=== PATIENT | male | born 1970 | race Caucasian/White ===

== ENCOUNTER 2022-06-05 18:05 | Inpatient (IN) | payer MEDICAID, SELFPAY ==
[2022-06-05] VITALS (19 sets, daily range): BP systolic 100–123; BP diastolic 76–88; PULSE 54–88; RESP 12–23; TEMP 36.6; O2SAT 100; BMI 27.3; BMI 26.0
--- NOTE | 2022-06-05 18:09 | NURSING ---
STEMI CALLED PRIOR TO ARRIVAL [id number]
--- NOTE | 2022-06-05 18:15 | EDS_ITS ---
HPI History of Present Illness Chief Complaint: Chest Pain Informant: patient Onset/Context/Timing Onset: Today Activity at onset: sudden Timing: Waxes and wanes Quality: Positive for Pressure Location: Substernal and Left Parasternal Maximum Severity: 9/10 Worsened By: Exertion Relieved By: Rest Associated Symptoms: Positive for Nausea, Diaphoresis and Dyspnea; Negative for Vomiting, Cough, Fever, Lightheadedness, Acid Reflux or Palpitations Narrative Narrative: Patient presents with chest pain that has been waxing and waning for the past 5 hours. Patient states it would get worse whenever he would do any exertion such as lifting. Patient states that his pain will get better with rest. Patient describes it as heaviness. Patient states it would go into his neck and down his left arm. Patient states it also went into his back. Patient admits to some shortness of breath. Patient also admits to some mild diaphoresis. Patient admits to nausea but denies any vomiting. Patient denies any palpitations or lightheadedness. CVD Risk Factors: Positive for Family History 1' </=55 and Smoking; Negative for Hypertension, Diabetes or Hypercholesterolemia PE Risk Factors: Negative for Recent Travel/Surgery, Recent Immobilization, Prior DVT or PE or Cancer PFSH PFSH Medical History Chronic back pain Former tobacco use Medical History no medical history no medical history Home Medications NK 06/05/22 [History Last Taken Unknown] Allergy/AdvReac Type Severity Reaction Status Date / Time No Known Allergies Allergy Verified 06/05/22 18:05 Family History (Updated 06/05/22 @ 18:[address] Ivonne Roman MD) Mother Heart disease Brother Heart disease Hx cardiac arrhythmia, possibly bradycardia, status post pacemaker placement. Surgical History History of dental surgery Surgical History no surgical history Social History (Updated 06/05/22 @ 18:[address] Ivonne Roman MD) household members: family Smoking Status: Former smoker how long ago did patient quit smoking: Quit 04/2021, smoked since 18, quit 7 yrs in between, 1/2-1 ppd. alcohol intake: never substance use type: does not use ROS ROS ED Constitutional Constitutional ED: Denies chills or fever(s) Eyes Eyes: Denies blurry vision or change in vision ENT ENT ED: Denies rhinorrhea or sore throat Cardiovascular Cardiovascular: Reports chest pain; Denies palpitations Respiratory/Chest Respiratory/Chest: Reports dyspnea; Denies cough Gastrointestinal Gastrointestinal: Reports nausea; Denies abdominal pain or vomiting Genitourinary Genitourinary ED: Denies dysuria or hematuria Musculoskeletal Musculoskeletal: Denies back pain or neck pain Integumentary Denies abscess or rash Neurologic Neurologic: Denies headache(s) or weakness Allergic/Immunologic Allergic/Immunologic ED: Denies mouth swelling or urticaria EXAM Physical Exam Const Vital Signs: 06/05/22 18:07 06/05/22 18:07 06/05/22 18:15 Temperature 97.9 F Temperature Source Temporal Pulse Rate 77 Respiratory Rate 20 H 17 Respiratory Effort Normal Non-Labored Blood Pressure 117/85 H 106/76 Blood Pressure Mean 95 Pulse Ox 100 Oxygen Delivery Method Room Air 06/05/22 18:26 06/05/22 18:26 Temperature 97.9 F Temperature Source Temporal Pulse Rate 69 Respiratory Rate 15 Respiratory Effort Blood Pressure 106/76 Blood Pressure Mean 86 Pulse Ox 100 100 Oxygen Delivery Method Room Air Nasal Cannula Positive well nourished and well developed General Appearance ED: well developed and NAD HEENT normocephalic and atraumatic Eyes PERRL and EOMs intact bilaterally Neck supple and no JVD Chest Wall palpation of chest normal Resp normal respiratory effort and clear to auscultation bilaterally Effort and Inspection: Negative for respiratory distress Cardio regular rate, regular rhythm and no murmurs GI normal to inspection, nondistended, normoactive bowel sounds, soft to palpation, non-tender and non-distended Extremity normal to inspection General Extremety ED: Negative for edema or tenderness General Extremity: Negative for edema Neuro oriented x3, CN's II-XII intact bilaterally and no sensory deficits noted Sensorium / Orientation: awake and alert Motor Exam: strength 5/5 throughout Psych mental status grossly normal Heart Score History: Highly Suspicious ECG: Significant ST-Depression Age: >45 - <65 years Risk Factors: 1 or 2 Risk Factors Score: 6 MDM MDM MDM Narrative Medical decision making narrative: Prehospital STEMI alert was called. EKG was obtained. On my interpretation, it shows a normal sinus rhythm. There is ST elevation in leads II, III, and aVF. There are reciprocal changes noted in leads I, aVL, V1, and V2. Case was discussed with machinist brake. He wanted me to text him the prehospital EKGs. These were done. EMS administered 4000 units of heparin, 4 baby aspirin, and 180 mg of Brilinta. Patient was advised of his diagnosis of acute inferior STEMI. Patient was advised of the need for immediate cardiac catheterization. Patient was given the opportunity ask questions. No further questions. Patient was agreeable to go to the [facility]. Patient was transferred to the [facility] in stable condition. Hospitalist was also in to evaluate the patient and will admit the patient to ICU after cardiac cath. Patient understood and was agreeable with plan. All questions were answered. Lab Data Labs: Laboratory Results - last 24 hr 06/05/22 06/05/22 06/05/22 08:03 18:05 18:05 WBC 10.7 RBC 4.92 Hgb 15.0 Hct 43.9 MCV 89.2 MCH 30.5 MCHC 34.2 RDW Std Deviation 42.5 RDW Coeff of Conrad 13.1 Plt Count 301 MPV 10.0 Immature Gran % (Auto) 0.200 Neut % (Auto) 57.3 Lymph % (Auto) 35.5 [place] % (Auto) 5.5 Eos % (Auto) 0.8 Baso % (Auto) 0.7 Absolute Neuts (auto) 6.1 Absolute Lymphs (auto) 3.78 Nucleated RBC % 0 PT 13.4 INR 1.0 APTT 27.4 Sodium Potassium Chloride Carbon Dioxide Anion Gap BUN Creatinine Estim Creat Clear Calc Est GFR (MDRD) Af Amer Est GFR (MDRD) Non-Af BUN/Creatinine Ratio Glucose Calcium Magnesium 2.2 Troponin I High Sens 06/05/22 18:05 WBC RBC Hgb Hct MCV MCH MCHC RDW Std Deviation RDW Coeff of Conrad Plt Count MPV Immature Gran % (Auto) Neut % (Auto) Lymph % (Auto) [place] % (Auto) Eos % (Auto) Baso % (Auto) Absolute Neuts (auto) Absolute Lymphs (auto) Nucleated RBC % PT INR APTT Sodium 139 Potassium 3.0 L Chloride 106 Carbon Dioxide 24.0 Anion Gap 9 BUN 11 Creatinine 1.19 Estim Creat Clear Calc 76.68 Est GFR (MDRD) Af Amer 83 Est GFR (MDRD) Non-Af 69 BUN/Creatinine Ratio 9.2 L Glucose 130 H Calcium 9.8 Magnesium Troponin I High Sens 14 EKG Initial EKG: Attestation: I personally reviewed and interpreted this EKG as follows: Interpretation: Sinus Rhythm and S-T Elevation (Leads II, III, and aVF) Prior EKG tracings: not available for review Prior: No Prior Critical Care Time Critical Care Time: Yes Critical care time (excluding procedures): 30-74 minutes (30), Including time spent:, Discussing w/Patient &/or Family/Behavioral Health Counselor, Discussing w/Consultants, Arranging Admission or Transfer and Performing Direct Patient Care at Bedside Discharge Plan Dx/Rx/DC Orders Clinical Impression: Acute ST elevation myocardial infarction (STEMI), Former cigarette smoker Disposition Disposition: Acute Care Hospital [facility] Discharge Date/Time: 06/05/22 18:20
--- NOTE | 2022-06-05 18:19 | NURSING ---
ICU [facility] STEMI
[2022-06-05 18:28] LABS: Absolute Lymphocyte Count 3.78 X10^3/uL (0.83-4.51); Absolute Neutrophil Count 6.1 X10^3/uL (2.0-7.7); Basophil# 0.07 X10^3/uL; Basophil% 0.7 % (0-1); Eosinophil# 0.08 X10^3/uL; Eosinophils% 0.8 % (0-5); Hematocrit 43.9 % (40-54); Lymphocyte # 3.78 X10^3/ul (0.83-4.51); Lymphocyte % 35.5 % (19-41); Mean Corp Hgb Conc 34.2 g/dL (32-36); Mean Corpuscular Hgb 30.5 pg (27.0-32.0); Mean Corpuscular Volume 89.2 fL (80-94); Monocyte# 0.59 X10^3/uL; Monocyte% 5.5 % (0-10); NRBC Flagged by Analyzer 0 % (0-5); Neutrophil # 6.11 X10^3/uL (2.7-7.7); Neutrophil % 57.3 % (47-70); Platelet Count 301 K/mm3 (150-450); RBC Distribution Width CV 13.1 % (11.6-14.6); RBC Distribution Width SD 42.5 fl (35.1-43.9); Red Blood Count 4.92 M/mm3 (4.6-6.2); White Blood Count 10.7 K/mm3 (4.4-11.0)
--- NOTE | 2022-06-05 18:37 | HP.PCM.HOS_ITS ---
HPI - General General Date of Admission: 06/05/22 Date of Service: 06/05/22 Chief Complaint: Chest pain. HPI Narrative The patient is a 52 y/o M w/ PMhx: Chronic back pain, Former tobacco use who presents to the [facility] ED on 06/05/22 secondary to onset starting approximately 1:30 PM on day of presentation of general malaise, nausea without emesis, diaphoresis and dyspnea with associated chest pressure/tightness primarily in the midsternal region however it radiates to the left jaw as well as left upper extremity into the back as well but seems to shanon with rest and he noted specifically onset when he was moving furniture and with any activity attempts with improvement when he again took a break rating the pain at its worst 8-9 out of 10 in severity and upon ED arrival 2 out of 10 never having felt anything like this prior eventually prompting his family to call EMS. EMS on route did send the EKG which demonstrated an acute inferior STEMI with STEMI call initiated. On route patient was administered 4 baby aspirin's, 180 mg Brilinta load as well as heparin 4000 unit bolus. Work-up in the ED included T97.9, heart rate 69, BP 106/79, respiratory rate 15, 100% on room air, repeat EKG with normal sinus rhythm with ST elevations in lead II, 3, aVF with reciprocal changes in leads I, aVL, V1 and V2 again reviewed with cardiology, CBC with WC 10.7, hemoglobin 15, platelets 301 without marked shift, pending coags as well as BMP upon evaluation in addition to troponin and chest x-ray also pending upon evaluation. Patient transitioned from the ED to the cardiac catheterization lab with Dr. Barraza. [facility] Medical History Chronic back pain Former tobacco use Medical History no medical history Home Medications NK 06/05/22 [History Last Taken Unknown] Allergy/AdvReac Type Severity Reaction Status Date / Time No Known Allergies Allergy Verified 06/05/22 18:05 Family History (Updated 06/05/22 @ 18:[address] Ivonne Roman MD) Mother Heart disease Brother Heart disease Hx cardiac arrhythmia, possibly bradycardia, status post pacemaker placement. other (Father in his 40s without medical history secondary to MVA.) Surgical History History of dental surgery Surgical History no surgical history Social History (Updated 06/05/22 @ 18:[address] Ivonne Roman MD) household members: family Smoking Status: Former smoker how long ago did patient quit smoking: Quit 04/2021, smoked since 18, quit 7 yrs in between, 2-1 ppd. alcohol intake: never substance use type: does not use ROS ROS Narrative Admission Review of Systems: CONSTITUTIONAL: No weight loss, fever, chills, + weakness or fatigue. HEENT: Eyes: No visual loss, blurred vision, double vision or yellow sclerae. Ears, Nose, Throat: No hearing loss, sneezing, congestion, runny nose or sore throat. SKIN: No rash or itching, lesions, wounds. CARDIOVASCULAR: + Chest tightness/pressure, No palpitations, edema, orthopnea, syncopal events. RESPIRATORY: + shortness of breath, No cough or sputum, wheezing, hemoptysis. GASTROINTESTINAL:+ anorexia, nausea, No vomiting or diarrhea, abdominal pain, melena, BRBPR. GENITOURINARY: No dysuria, frequency, urgency or retention. NEUROLOGICAL: No headache, dizziness, syncope, paralysis, ataxia, numbness or tingling in the extremities, focal weakness, change in bowel or bladder control, seizure. MUSCULOSKELETAL: + muscle, back pain, joint pain or stiffness. HEMATOLOGIC: No anemia, bleeding or bruising. LYMPHATICS: No enlarged nodes. No history of splenectomy. PSYCHIATRIC: No history of depression or anxiety. ENDOCRINOLOGIC: + reports of sweating, cold or heat intolerance. No polyuria or polydipsia. ALLERGIES: No history of asthma, hives, eczema or rhinitis. Vital Signs Vital Signs Vital Signs: 06/05/22 18:07 06/05/22 18:07 06/05/22 18:15 Temperature 97.9 F Temperature Source Temporal Pulse Rate 77 Respiratory Rate 20 H 17 Respiratory Effort Normal Non-Labored Blood Pressure 117/85 H 106/76 Blood Pressure Mean 95 Pulse Ox 100 Oxygen Delivery Method Room Air 06/05/22 18:26 06/05/22 18:26 Temperature 97.9 F Temperature Source Temporal Pulse Rate 69 Respiratory Rate 15 Respiratory Effort Blood Pressure 106/76 Blood Pressure Mean 86 Pulse Ox 100 100 Oxygen Delivery Method Room Air Nasal Cannula Weight Weight: 190 lb 4.143 oz Body Mass Index (BMI) 27.3 Physical Exam Narrative Physical Examination: General: Awake, alert, oriented x 3 and cooperative, laying in the ED bed, anxious, notes chest pain currently improved to 2-3 out of 10 in severity. Skin: Normal color, normal turgor, no icterus, no cyanosis, several tattoos on the extremities. HEENT: AT/NC, EOMI, PERRLA, mildly dry MM, no carotid bruits or JVD noted. Lungs: Mildly diminished, greater bases, appropriate effort, no rales, ronchi or wheezing. Heart: Currently regular rate and rhythm; no gallop, rub audible. Abdomen: Soft, NTTP, ND, mildly hyperactive BS, no HSM. Extremities: No cyanosis, clubbing, or edema. Neurological: Patient awake, alert, oriented as noted, cognitive function intact; pupils equally reactive to light and accommodation, cranial nerves II- XII grossly normal, moving all 4 extremities, no focal deficits, strength mildly to moderately global decrease secondary to acute presentation. Psychiatric: Affect appears appropriately anxious given acute presentation with STEMI, no acute evidence of depressive feelings. Results Lab / Micro Data Result Diagrams: 06/05/22 18:05 06/05/22 18:05 Labs: Laboratory Results - last 24 hr 06/05/22 18:05: WBC 10.7, RBC 4.92, Hgb 15.0, Hct 43.9, MCV 89.2, MCH 30.5, MCHC 34.2, RDW Std Deviation 42.5, RDW Coeff of Conrad 13.1, Plt Count 301, MPV 10.0, Immature Gran % (Auto) 0.200, Neut % (Auto) 57.3, Lymph % (Auto) 35.5, [place]ane % (Auto) 5.5, Eos % (Auto) 0.8, Baso % (Auto) 0.7, Absolute Neuts (auto) 6.1, Absolute Lymphs (auto) 3.78, Nucleated RBC % 0 Assessment & Plan Assessment/Plan (1) Acute ST elevation myocardial infarction (STEMI): PLAN: Plan The patient is a 52 y/o M w/ PMhx: Chronic back pain, Former tobacco use who presents to the [facility] ED on 06/05/22 secondary to onset starting approximately 1:30 PM on day of presentation of general malaise, nausea without emesis, diaphoresis and dyspnea with associated chest pressure/tightness primarily in the midsternal region however it radiates to the left jaw as well as left upper extremity into the back ongoing intermittently through the day primarily with activity, improving with rest. #1. Chest Pain w/ Acute Inferior STEMI: On route patient was administered 4 baby aspirin's, 180 mg Brilinta load as well as heparin 4000 unit bolus. Work-up in the ED included EKG with normal sinus rhythm with ST elevations in lead II, 3, aVF with reciprocal changes in leads I, aVL, V1 and V2. Will admit to ICU following catheterization lab evaluation and intervetion, continue consultation with Dr. Barraza, maintain on a monitored bed, continue serial cardiac enzymes and EKGs, obtain magnesium level upon admission, initiate medical management w/ asa, brillinta, statin w/ AM FLP. Cardiology noted preference to monitor BP to assess BB/ACEI/ARB addition. #2. Chronic back pain: Patient not on any chronic regimen per his report, will obtain UDS to be cautious. #3. Former tobacco use: Encourage continued tobacco cessation. #4. DVT prophylaxis: SCDs, hold on chemoprophylaxis given recent heparin bolus, transition in a.m. to Lovenox if appropriate. Charges/Coding Visit Charges Inpatient E&M: 96129 Init Hosp L3
--- NOTE | 2022-06-05 18:39 | CM.ED ---
JUDITH Note JUDITH and JUDITH Bolden met with patient's sister, niece and nieces . Emotional support provided. JUDITH remains available if needs arise. Alivia VIDAL
[2022-06-05 18:46] LABS: Partial Thromboplast Time 27.4 Seconds (24.1-36.2); Prothrombin Time (Protime)PT. 13.4 SECONDS (11.7-14.9)
[2022-06-05 19:15] LABS: Anion Gap 9 (5-15); BUN 11 mg/dL (7-18); BUN/Creat Ratio 9.2 RATIO (10-20); Calcium,Total 9.8 mg/dL (8.5-10.1); Chloride 106 mmol/L (98-107); Creatinine, Serum 1.19 mg/dL (0.70-1.30); EST Glomerular Filtration Rate 69 mL/min (>60); Est Glom Filt Rate - Afr Amer 83 mL/min (>60); Estimated Creatinine Clearance 76.68 ml/min; Glucose 130 mg/dL (74-106); Sodium Level 139 mmol/L (136-145); Troponin-I HS 14 pg/mL (3.0-78.0)
[2022-06-05 19:16] LABS: Magnesium 2.2 mg/dL (1.6-2.6)
--- NOTE | 2022-06-05 19:42 | CL.I_ITS ---
Patient Name: LALITA ROJO Study Date: 06/05/2022 Performing: Manuel Bararza MD Ht: 70 inches 177.8 cm : 1970 Wt: 190.26 lbs 86.3 kg Age: 52 Gender: male BSA: 2.04 PROCEDURE(S) PERFORMED DC01-([id number])LHC/COR/LV IC16-([id number])AMI, SENG OR PTCA, ARTERY/GRAFT, SINGLE VESSEL CLINICAL PROFILE AND CO-MORBIDITIES Indications: ACS <= 24 hrs Heart Failure: None Stress/Imaging Stress/Image Study Performed: No CAD Presentations: STEMI. Symptom onset Date/Time: Time Not Available CONCLUSIONS 100% Prox RCA 50-60% Prox LAD; Intramyocardial bridging Mid LAD 50% Mid LCX Successful Aspiration thrombectomy/PTCA/SENG Synergy 3.0x38 mm Successful SENG distal RCA using Synergy 2.5x12 mm RECOMMENDATIONS ASA Indefinitley Plavix for at least 12 months DESCRIPTION OF PROCEDURE The patient arrived to the procedure lab. The risks and benefits of the procedure as well as a full description of our services here and lack of surgical backup were fully explained to the patient and/or their significant other prior to the catheterization. The Timeout was completed, verifying the correct patient and procedure. The patient's procedural site was prepped and draped in the usual fashion. Local anesthetic was given subcutaneously to right radial region with Lidocaine 2%. Using a modified Seldinger technique, arterial access was obtained via the right radial artery, a 6Fr sheath was inserted.. Left Coronary Artery selective angiography was performed in multiple views using a 5 Fr. 4.0 [place] catheter. Right Coronary Artery selective angiography was then performed in multiple views using a 5 Fr. 4.0 [place] catheter. Left Ventriculography was performed in CASTRO projection using a 5 Fr. Pigtail catheter. LV to AO pullback pressures were then recordedThe images were reviewed and options discussed. A decision was then made to proceed with an Intervention, IVUS or other adjunct procedure. JR4 Guide catheter was inserted and engaged into the RCA. Runthrough Guide wire was advanced to the RCA. Emerge 2.5 x 20 Balloon catheter was inserted. Balloon catheter was advanced across lesion in the right coronary, proximal. PTCA balloon inflated at 8 atms for 12 secs. PTCA balloon inflated at 8 atms for 7 secs. Synergy 2.5 x 12 Drug Eluting stent was inserted. Drug Eluting stent was advanced across the lesion in the right coronary, proximal. Synergy 3.0 x 38 Drug Eluting stent was inserted. Drug Eluting stent was advanced across the lesion in the right coronary, distal. NC Emerge 2.5 x 12 Balloon catheter was inserted. Balloon catheter was advanced across lesion in the right coronary, distal. NC Emerge 3.0 x 20 Balloon catheter was inserted. Balloon catheter was advanced across lesion in the right coronary, proximal. Angiogram performed post balloon dilatation. Angiogram performed post balloon dilatation. The arterial sheath was pulled and a TR Band was applied for hemostasis CORONARY ANGIOGRAPHY DOMINANCE: Right Dominant LEFT HEART ASSESSMENT Left Ventricular Ejection Fraction: by LV Gram 55 % LVEDP: 26 mmHg LEFT ANTERIOR DESCENDING ARTERY: LAD: Tubular 60% Proximal lesion in LAD CIRCUMFLEX ARTERY: CIRCUMFLEX: Tubular 50% Proximal lesion in Circumflex RIGHT CORONARY ARTERY: RCA: Tubular 80% Distal lesion in RCA Complex 100% Proximal lesion in RCA INTERVENTION INFORMATION LESION SITE: RCA (Proximal) Lesion Complexity: High/C, lesion length: 36 mm, thrombus present: Yes, culprit lesion: Yes Pre Stenosis: 100 % Pre intervention LUCA flow: 0 PROCEDURE: Drug Eluting Stent with pre and post dilatation Post Stenosis: 0 % Post intervention LUCA flow: 3 Lesion Devices: Terumo .014 Runthrough Extra Floppy 180cm straight Ayad Sci EMERGE MR 2.50x20 BALLOON Penumbra Penumbra engine canister Penumbra Indigo Penumbra CAT Rx 140cm large lumen Ayad Sci Synergy MR SENG 2.50x32 LESION SITE: RCA (Distal) Lesion Complexity: Non-High/Non-C, culprit lesion: No Pre Stenosis: 80 % Pre intervention LUCA flow: 3 PROCEDURE: Drug Eluting Stent Post Stenosis: 0 % Post intervention LUCA flow: 3 Lesion Devices: Terumo .014 Runthrough Extra Floppy 180cm straight Ayad Sci Synergy MR SENG 3.00x38 Ayad Sci NC EMERGE MR 2.50x12 BALLOON Ayad Sci NC EMERGE MR 3.00x20 BALLOON COMPLICATIONS No Complications PROCEDURE MEDICATIONS Versed 2 mg IV Fentanyl 50 mcg IV Oxygen: 2 L/min via nasal cannula Atropine 1mg/10ml 0.5 amp @ 06/05/2022 18:45:06 Heparin 6000 unit(s) IV 06/05/2022 18:41:11 Nitro 50 mcg IC 06/05/2022 18:47:21 Verapamil 2.5mg, Ntg 200mcgs, given IA 06/05/2022 18:33:42 IV Bolus: .9 NaCl 900 ml total 06/05/2022 19:16:05 IV Fluids: .9 NaCl IV started @ open ml/hr 06/05/2022 18:48:16 IV Fluids: .9 NaCl decreased to 150 ml/hr 06/05/2022 19:16:51 SUMMARY OF HEMODYNAMIC DATA Time AIR REST ECG 18:27:43 AO 108/82 (92) SA 19:10:22 LV 138/9, 29 19:12:30 LV 138/6, 26 19:12:36 LV 140/10, 30 19:14:14 LV 136/9, 29 19:14:20 LVp 138/9, 26 19:14:27 AOp 118/85 (97) 19:14:32 Signed By Manuel Barraza MD On 06/05/2022 19:41:13 Manuel Barraza MD
--- NOTE | 2022-06-05 19:56 | PCM.CONS.C ---
Assessment & Plan Assessment/Plan (1) Acute ST elevation myocardial infarction (STEMI): QUALIFIERS: Involved coronary artery: right coronary artery Qualified Code(s): I21.11 - ST elevation (STEMI) myocardial infarction involving right coronary artery PLAN: Emergent coronary angiography with possible revascularization was recommended. After obtaining informed consent, procedure was undertaken. It revealed total occlusion of the proximal right coronary artery. Successful aspiration atherectomy followed by balloon angioplasty and drug-eluting stent was performed with excellent results. LUCA-3 flow was restored. Patient's ST segments resolved. His chest pain also resolved. Continue aspirin indefinitely. Brilinta treatment for at least 12 months. Start low-dose beta-blockers as tolerated. Start statins. HPI Consult Data Date of Consult: 06/05/22 HPI Narrative Reason for Consultation: Acute inferior myocardial infarction HPI Narrative: Patient developed chest pain early this afternoon. EMS was called this evening. An EKG was done in the field. It showed acute inferior posterior myocardial infarction. Subsequently a STEMI alert was called. Patient denies any previous history of heart disease. Denies any history of hypertension or dyslipidemia. No previous history of angina. PFSH Medical History Chronic back pain Former tobacco use Medical History no medical history Home Medications NK 06/05/22 [History Last Taken Unknown] Allergy/AdvReac Type Severity Reaction Status Date / Time No Known Allergies Allergy Verified 06/05/22 18:05 Family History (Updated 06/05/22 @ 18:[address] Ivonne Roman MD) Mother Heart disease Brother Heart disease Hx cardiac arrhythmia, possibly bradycardia, status post pacemaker placement. Family History other Surgical History History of dental surgery Surgical History no surgical history Social History (Updated 06/05/22 @ 18:[address] Ivonne Roman MD) household members: family Smoking Status: Former smoker how long ago did patient quit smoking: Quit 04/2021, smoked since 18, quit 7 yrs in between, 1/2-1 ppd. alcohol intake: never substance use type: does not use Physical Exam Narrative Patient appears mildly anxious. Lying flat. Heart rate regular rate and rhythm. Respirations unlabored. Abdomen soft. Nontender. Alert oriented x3. No ankle edema. Risk Stratification Risk Stratification Applicable: No Objective Data Vital Signs: Vital Signs Temp Pulse Resp BP Pulse Ox O2 Del Method 97.9 F 69 15 106/76 100 Nasal Cannula 06/05/22 18:26 06/05/22 18:26 06/05/22 18:26 06/05/22 18:26 06/05/22 18:26 06/05/22 18:26 Oxygen Delivery Method Nasal Cannula Weight: 190 lb 4.143 oz Body Mass Index (BMI) 27.3 Lab / Micro Data Attestation: I reviewed the patient's lab results. Result Diagrams: 06/05/22 18:05 06/05/22 18:05 Labs: Laboratory Results - last 24 hr 06/05/22 08:03: Magnesium 2.2 06/05/22 18:05: WBC 10.7, RBC 4.92, Hgb 15.0, Hct 43.9, MCV 89.2, MCH 30.5, MCHC 34.2, RDW Std Deviation 42.5, RDW Coeff of Conrad 13.1, Plt Count 301, MPV 10.0, Immature Gran % (Auto) 0.200, Neut % (Auto) 57.3, Lymph % (Auto) 35.5, [place] % (Auto) 5.5, Eos % (Auto) 0.8, Baso % (Auto) 0.7, Absolute Neuts (auto) 6.1, Absolute Lymphs (auto) 3.78, Nucleated RBC % 0 06/05/22 18:05: PT 13.4, INR 1.0, APTT 27.4 06/05/22 18:05: Sodium 139, Potassium 3.0 L, Chloride 106, Carbon Dioxide 24.0, Anion Gap 9, BUN 11, Creatinine 1.19, Estim Creat Clear Calc 76.68, Est GFR (MDRD) Af Amer 83, Est GFR (MDRD) Non-Af 69, BUN/Creatinine Ratio 9.2 L, Glucose 130 H, Calcium 9.8, Troponin I High Sens 14 Cardiology Labs/Tests 06/05/22 08:03: Magnesium 2.2 06/05/22 18:05: WBC 10.7, RBC 4.92, Hgb 15.0, Hct 43.9, MCV 89.2, MCH 30.5, MCHC 34.2, Plt Count 301, MPV 10.0, Immature Gran % (Auto) 0.200, Neut % (Auto) 57.3, Lymph % (Auto) 35.5, [place] % (Auto) 5.5, Eos % (Auto) 0.8, Baso % (Auto) 0.7, Absolute Neuts (auto) 6.1, Nucleated RBC % 0 06/05/22 18:05: PT 13.4, INR 1.0, APTT 27.4 06/05/22 18:05: Sodium 139, Potassium 3.0 L, Chloride 106, Carbon Dioxide 24.0, Anion Gap 9, BUN 11, Creatinine 1.19, Est GFR (MDRD) Af Amer 83, Est GFR (MDRD) Non-Af 69, BUN/Creatinine Ratio 9.2 L, Glucose 130 H, Calcium 9.8 Rhythm: EKG: ECHO: Stress Test: Cardiac Cath: PCI: CT Surgery: Holter monitor: EPS: PPM: CXR: Chest CT Scan:
--- NOTE | 2022-06-05 20:13 | ECHOD_ITS ---
Reason For Study: STEMI Procedure This was a 2D Doppler, Color Flow transthoracic echocardiogram. Exam performed portable in ICU/CCU. Left Ventricle Normal LV size. Mild concentric left ventricular hypertrophy. The left ventricular ejection fraction is 55 %. Normal diastololic function. Basal to mid inferior and posterior hypokinesis. Right Ventricle Mildly dilated right ventricle. Moderate global right ventricular systolic dysfunction. Atria The left and right atria are normal. Mitral Valve Trivial mitral valve insufficiency. Tricuspid Valve Trivial tricuspid valve insufficiency. Normal pulmonary artery pressure. Aortic Valve Normal aortic valve. Pulmonic Valve The pulmonic valve is not well visualized. Great Vessels Normal sized aortic root. Pericardium/Pleural No pericardial effusion. MMode/2D Measurements & Calculations LVIDd: 5.2 cm IVSd: 1.2 cm Ao root diam: 3.4 cm LVIDs: 3.8 cm LVPWd: 0.74 cm LA dimension: 3.1 cm RVDd: 3.6 cm FS: 26.8 % LAV(MOD-bp): 39.2 ml LA A4 area: 15.7 cm2 RA A4 area: 15.7 cm2 LAV(MOD-bp) Indexed: 19.6 ml/m2 LAV(MOD-sp2): 34.3 ml LAV(MOD-sp4): 36.4 ml Time Measurements MV dec time: 0.17 sec Doppler Measurements & Calculations MV E max gamal: 87.9 cm/sec Lat Peak E' Gamal: 12.7 cm/sec Med Peak E' Gamal: 11.4 cm/sec MV A max gamal: 68.2 cm/sec E/E' lat: 6.9 E/E' med: 7.7 MV E/A: 1.3 MV V2 max: 89.8 cm/sec MV P1/2t max gamal: 90.8 cm/sec Ao V2 max: 127.7 cm/sec MV max P.2 mmHg MV P1/2t: 57.1 msec Ao max P.5 mmHg MV V2 mean: 40.1 cm/sec MV dec slope: 465.8 cm/sec2 Ao V2 mean: 87.6 cm/sec MV mean P.88 mmHg MVA(P1/2t): 3.9 cm2 Ao mean P.6 mmHg MV V2 VTI: 36.0 cm Ao V2 VTI: 29.3 cm LV V1 max: 110.4 cm/sec PA V2 max: 84.8 cm/sec TR max gamal: 245.1 cm/sec LV V1 max P.9 mmHg PA V2 mean: 62.5 cm/sec TR max P.0 mmHg LV V1 mean P.6 mmHg LV V1 mean: 75.0 cm/sec LV V1 VTI: 25.4 cm ECHO/Echo Complete Interpretation Summary Mild concentric left ventricular hypertrophy. The left ventricular ejection fraction is 55 %. Basal to mid inferior and posterior hypokinesis. Mildly dilated right ventricle. Moderate global right ventricular systolic dysfunction. Ordering Physician: Ivonne Roman Referring Physician: Manuel Barraza Performed By: Mich Arizmendi RCS
--- NOTE | 2022-06-05 20:15 | EKG12_ITS ---
Test Reason : Blood Pressure : / mmHG Vent. Rate : 065 BPM Atrial Rate : 065 BPM P-R Int : 130 ms QRS Dur : 090 ms QT Int : 404 ms P-R-T Axes : 061 025 099 degrees QTc Int : 420 ms Sinus rhythm with marked sinus arrhythmia Inferior-posterior infarct , possibly acute ACUTE NM / STEMI Consider right ventricular involvement in acute inferior infarct Abnormal ECG No previous ECGs available Confirmed by ASHLEY RAMESH, CARRINGTON ([id number]), editor sound KATLIN LOCKETT ([id number]) on 06/08/2022 7:48:17 AM Referred By: Manuel Barraza Confirmed By:CARRINGTON RAMIREZ MD
[2022-06-05] MEDS: 0.9% Normal Saline 1,000 ML 150 ML IV (20:55)
[2022-06-05 20:59] LABS: Amphetamine Urine VISTA NEGATIVE (<1000 ng/mL); Barbiturate Urine VISTA NEGATIVE (< 200 ng/mL); Benzodiazepine Urine VISTA POSITIVE (< 200 ng/mL); Cocaine Urine VISTA NEGATIVE (< 300 ng/mL); Ecstacy Urine VISTA NEGATIVE (< 500 ng/mL); Methadone Urine VISTA NEGATIVE (< 300 ng/mL); PCP Urine VISTA NEGATIVE (< 25 ng/mL); THC Urine VISTA NEGATIVE (< 50 ng/mL); Vista UDS pH Range 8
[2022-06-05 21:06] LABS: Troponin-I HS 3338 pg/mL (3.0-78.0)
[2022-06-05] MEDS: Atorvastatin Calcium 80 MG Tablet PO (21:08)
[2022-06-05] MEDS: Metoprolol Tartrate 25 MG Tablet 12.5 MG PO (21:08)
[2022-06-06] VITALS (26 sets, daily range): BP systolic 83–115; BP diastolic 53–96; PULSE 43–68; RESP 10–20; TEMP 36.1–36.8; O2SAT 96–100
[2022-06-06 00:42] LABS: Troponin-I HS 17952 pg/mL (3.0-78.0)
[2022-06-06] MEDS: Potassium Chloride Oral Tablet 20 MEQ 40 MEQ PO (00:50)
[2022-06-06] MEDS: 0.9% Normal Saline 1,000 ML 100 ML IV (00:55)
[2022-06-06 04:11] LABS: Absolute Lymphocyte Count 1.98 X10^3/uL (0.83-4.51); Absolute Neutrophil Count 5.6 X10^3/uL (2.0-7.7); Basophil# 0.06 X10^3/uL; Basophil% 0.7 % (0-1); Eosinophil# 0.06 X10^3/uL; Eosinophils% 0.7 % (0-5); Hematocrit 36.1 % (40-54); Hemoglobin 12.1 g/dL (13.0-16.5); Lymphocyte # 1.98 X10^3/ul (0.83-4.51); Lymphocyte % 23.7 % (19-41); Mean Corp Hgb Conc 33.5 g/dL (32-36); Mean Corpuscular Hgb 30.6 pg (27.0-32.0); Mean Corpuscular Volume 91.4 fL (80-94); Monocyte# 0.69 X10^3/uL; Monocyte% 8.2 % (0-10); NRBC Flagged by Analyzer 0 % (0-5); Neutrophil # 5.56 X10^3/uL (2.7-7.7); Neutrophil % 66.5 % (47-70); Platelet Count 225 K/mm3 (150-450); RBC Distribution Width CV 13.5 % (11.6-14.6); RBC Distribution Width SD 45.3 fl (35.1-43.9); Red Blood Count 3.95 M/mm3 (4.6-6.2); White Blood Count 8.4 K/mm3 (4.4-11.0)
[2022-06-06 04:58] LABS: ALB/GLOB Ratio 1.1 RATIO (0.9-2.4); AST(SGOT) 51 U/L (15-37); Alanine Aminotransfer ALT/SGPT 30 U/L (16-61); Alkaline Phosphatase 88 U/L (45-117); Anion Gap 5 (5-15); BUN 11 mg/dL (7-18); BUN/Creat Ratio 11.2 RATIO (10-20); Calcium,Total 8.1 mg/dL (8.5-10.1); Chloride 110 mmol/L (98-107); Cholesterol 151 mg/dL (200); Creatinine, Serum 0.98 mg/dL (0.70-1.30); EST Glomerular Filtration Rate 86 mL/min (>60); Est Glom Filt Rate - Afr Amer 104 mL/min (>60); Estimated Creatinine Clearance 93.11 ml/min; Globulin 2.8 g/dL (2.2-4.2); Glucose 101 mg/dL (74-106); High Density Lipoprotein 27 mg/dL; Potassium 3.7 mmol/L (3.5-5.1); Protein, Total 5.8 g/dL (6.4-8.2); Sodium Level 141 mmol/L (136-145); Triglycerides 112 mg/dL; Very Low Density Lipoprotein 22 mg/dL (5-40)
--- NOTE | 2022-06-06 08:38 | PN.HOSP_ITS ---
Subjective Subjective DOS: 06/06/2022 CC: [] [] Objective Data Objective Data Vital Signs: Vital Signs Temp Pulse Resp BP Pulse Ox O2 Del Method O2 Flow Rate 97.0 F L 44 L 16 83/67 L 98 Room Air 2 06/06/22 04:00 06/06/22 07:00 06/06/22 07:00 06/06/22 07:00 06/06/22 07:10 06/06/22 07:10 06/06/22 04:37 Oxygen Flow Rate (L/min) 2 Oxygen Delivery Method Room Air Weight: 82.4 kg Body Mass Index (BMI) 26.0 Intake & Output: Intake and Output for Last 24 Hours 06/04/22 06/05/22 06/06/22 23:59 23:59 23:59 Intake Total 612.5 / 612.5 Output Total 550 / 550 400 / 400 Balance -550 / -550 212.5 / 212.5 Lab / Micro Data Result Diagrams: 06/06/22 04:00 06/06/22 04:00 Labs: Laboratory Results - last 24 hr 06/05/22 08:03: Magnesium 2.2 06/05/22 18:05: WBC 10.7, RBC 4.92, Hgb 15.0, Hct 43.9, MCV 89.2, MCH 30.5, MCHC 34.2, RDW Std Deviation 42.5, RDW Coeff of Conrad 13.1, Plt Count 301, MPV 10.0, Immature Gran % (Auto) 0.200, Neut % (Auto) 57.3, Lymph % (Auto) 35.5, [place] % (Auto) 5.5, Eos % (Auto) 0.8, Baso % (Auto) 0.7, Absolute Neuts (auto) 6.1, Absolute Lymphs (auto) 3.78, Nucleated RBC % 0 06/05/22 18:05: PT 13.4, INR 1.0, APTT 27.4 06/05/22 18:05: Sodium 139, Potassium 3.0 L, Chloride 106, Carbon Dioxide 24.0, Anion Gap 9, BUN 11, Creatinine 1.19, Estim Creat Clear Calc 76.68, Est GFR (MDRD) Af Amer 83, Est GFR (MDRD) Non-Af 69, BUN/Creatinine Ratio 9.2 L, Glucose 130 H, Calcium 9.8, Troponin I High Sens 14 06/05/22 20:25: Urine Opiates Screen NEGATIVE, Urine Methadone Screen NEGATIVE, Ur Barbiturates Screen NEGATIVE, Ur Phencyclidine Scrn NEGATIVE, Ur Amphetamines Screen NEGATIVE, MDMA (Ecstasy) Screen NEGATIVE, U Benzodiazepines Scrn POSITIVE H, Urine Cocaine Screen NEGATIVE, U Cannabinoids Screen NEGATIVE, Ur Drug Screen Comment 06/05/22 20:35: Troponin I High Sens 3338 H* 06/06/22 00:00: Troponin I High Sens [id number] H* 06/06/22 04:00: WBC 8.4, RBC 3.95 L, Hgb 12.1 L, Hct 36.1 L, MCV 91.4, MCH 30.6, MCHC 33.5, RDW Std Deviation 45.3 H, RDW Coeff of Conrad 13.5, Plt Count 225, MPV 10.0, Immature Gran % (Auto) 0.200, Neut % (Auto) 66.5, Lymph % (Auto) 23.7, [place] % (Auto) 8.2, Eos % (Auto) 0.7, Baso % (Auto) 0.7, Absolute Neuts (auto) 5.6, Absolute Lymphs (auto) 1.98, Nucleated RBC % 0 06/06/22 04:00: Sodium 141, Potassium 3.7, Chloride 110 H, Carbon Dioxide 26.0, Anion Gap 5, BUN 11, Creatinine 0.98, Estim Creat Clear Calc 93.11, Est GFR (MDRD) Af Amer 104, Est GFR (MDRD) Non-Af 86, BUN/Creatinine Ratio 11.2, Glucose 101, Calcium 8.1 L, Total Bilirubin 0.30, AST 51 H, ALT 30, Alkaline Phos phatase 88, Total Protein 5.8 L, Albumin 3.0 L, Globulin 2.8, Albumin/Globulin Ratio 1.1, Triglycerides 112, Cholesterol 151, LDL Cholesterol 102, VLDL Ch olesterol 22, HDL Cholesterol 27 L Assessment & Plan Assessment/Plan (1) Acute ST elevation myocardial infarction (STEMI): QUALIFIERS: Involved coronary artery: right coronary artery Qualified Code(s): I21.11 - ST elevation (STEMI) myocardial infarction involving right coronary artery PLAN: Plan The patient is a 52 y/o M w/ PMhx: Chronic back pain, Former tobacco use who presents [facility] ED on 06/05/22 secondary to onset starting approximately 1:30 PM on day of presentation of general malaise, nausea without emesis, diaphoresis and dyspnea with associated chest pressure/tightness primarily in the midsternal region however it radiates to the left jaw as well as left upper extremity into the back ongoing intermittently through the day primarily with activity, improving with rest. #1. Chest Pain w/ Acute Inferior STEMI On route patient was administered 4 baby aspirin's, 180 mg Brilinta load as well as heparin 4000 unit bolus Work-up in the ED included EKG with normal sinus rhythm with ST elevations in lead II, 3, aVF with reciprocal changes in leads I, aVL, V1 and V2 Admitted to ICU following cardiac cath and intervention Cardiac cath 06/05 with total occlusion of the right proximal coronary artery. Successful aspiration atherectomy followed by balloon angioplasty and SENG was performed Aspirin indefinitely, Brilinta for at least 12 months Statin, beta-chayito Cardiology following #2. Chronic back pain: Patient not on any chronic regimen per his report #3. Former tobacco use: Encourage continued tobacco cessation. #4. DVT prophylaxis: SCDs Verena Prabhakar MD Charges/Coding Visit Charges Inpatient E&M: 92520 Subs Hosp L2
--- NOTE | 2022-06-06 09:56 | PN.CARD_ITS ---
Subjective Subjective No complaints. Feels good. Objective Data Vital Signs: Vital Signs Temp Pulse Resp BP Pulse Ox O2 Del Method O2 Flow Rate 97.9 F 54 L 14 96/60 99 Room Air 2 06/06/22 09:00 06/06/22 09:00 06/06/22 09:00 06/06/22 09:00 06/06/22 08:00 06/06/22 09:00 06/06/22 04:37 Oxygen Flow Rate (L/min) 2 Oxygen Delivery Method Room Air Weight: 181 lb 10.574 oz Body Mass Index (BMI) 26.0 Intake & Output: Intake and Output for Last 24 Hours 06/04/22 06/05/22 06/06/22 23:59 23:59 23:59 Intake Total 612.5 / 612.5 Output Total 550 / 550 400 / 400 Balance -550 / -550 212.5 / 212.5 Lab / Micro Data Attestation: I reviewed the patient's lab results. Result Diagrams: 06/06/22 04:00 06/06/22 04:00 Labs: Laboratory Results - last 24 hr 06/05/22 08:03: Magnesium 2.2 06/05/22 18:05: WBC 10.7, RBC 4.92, Hgb 15.0, Hct 43.9, MCV 89.2, MCH 30.5, MCHC 34.2, RDW Std Deviation 42.5, RDW Coeff of Conrad 13.1, Plt Count 301, MPV 10.0, Immature Gran % (Auto) 0.200, Neut % (Auto) 57.3, Lymph % (Auto) 35.5, [place] % (Auto) 5.5, Eos % (Auto) 0.8, Baso % (Auto) 0.7, Absolute Neuts (auto) 6.1, Absolute Lymphs (auto) 3.78, Nucleated RBC % 0 06/05/22 18:05: PT 13.4, INR 1.0, APTT 27.4 06/05/22 18:05: Sodium 139, Potassium 3.0 L, Chloride 106, Carbon Dioxide 24.0, Anion Gap 9, BUN 11, Creatinine 1.19, Estim Creat Clear Calc 76.68, Est GFR (MDRD) Af Amer 83, Est GFR (MDRD) Non-Af 69, BUN/Creatinine Ratio 9.2 L, Glucose 130 H, Calcium 9.8, Troponin I High Sens 14 06/05/22 20:25: Urine Opiates Screen NEGATIVE, Urine Methadone Screen NEGATIVE, Ur Barbiturates Screen NEGATIVE, Ur Phencyclidine Scrn NEGATIVE, Ur Amphetamines Screen NEGATIVE, MDMA (Ecstasy) Screen NEGATIVE, U Benzodiazepines Scrn POSITIVE H, Urine Cocaine Screen NEGATIVE, U Cannabinoids Screen NEGATIVE, Ur Drug Screen Comment 06/05/22 20:35: Troponin I High Sens 3338 H* 06/06/22 00:00: Troponin I [place] Sens 40869 H* 06/06/22 04:00: WBC 8.4, RBC 3.95 L, Hgb 12.1 L, Hct 36.1 L, MCV 91.4, MCH 30.6, MCHC 33.5, RDW Std Deviation 45.3 H, RDW Coeff of Conrad 13.5, Plt Count 225, MPV 10.0, Immature Gran % (Auto) 0.200, Neut % (Auto) 66.5, Lymph % (Auto) 23.7, [place] % (Auto) 8.2, Eos % (Auto) 0.7, Baso % (Auto) 0.7, Absolute Neuts (auto) 5.6, Absolute Lymphs (auto) 1.98, Nucleated RBC % 0 06/06/22 04:00: Sodium 141, Potassium 3.7, Chloride 110 H, Carbon Dioxide 26.0, Anion Gap 5, BUN 11, Creatinine 0.98, Estim Creat Clear Calc 93.11, Est GFR (MDRD) Af Amer 104, Est GFR (MDRD) Non-Af 86, BUN/Creatinine Ratio 11.2, Glucose 101, Calcium 8.1 L, Total Bilirubin 0.30, AST 51 H, ALT 30, Alkaline Phosphatase 88, Total Protein 5.8 L, Albumin 3.0 L, Globulin 2.8, Albumin/Globulin Ratio 1.1, Triglycerides 112, Cholesterol 151, LDL Cholesterol 102, VLDL Cholesterol 22, HDL Cholesterol 27 L Cardiology Labs/Tests 06/05/22 08:03: Magnesium 2.2 06/05/22 18:05: WBC 10.7, RBC 4.92, Hgb 15.0, Hct 43.9, MCV 89.2, MCH 30.5, MCHC 34.2, Plt Count 301, MPV 10.0, Immature Gran % (Auto) 0.200, Neut % (Auto) 57.3, Lymph % (Auto) 35.5, [place] % (Auto) 5.5, Eos % (Auto) 0.8, Baso % (Auto) 0.7, Absolute Neuts (auto) 6.1, Nucleated RBC % 0 06/05/22 18:05: PT 13.4, INR 1.0, APTT 27.4 06/05/22 18:05: Sodium 139, Potassium 3.0 L, Chloride 106, Carbon Dioxide 24.0, Anion Gap 9, BUN 11, Creatinine 1.19, Est GFR (MDRD) Af Amer 83, Est GFR (MDRD) Non-Af 69, BUN/Creatinine Ratio 9.2 L, Glucose 130 H, Calcium 9.8 06/06/22 04:00: WBC 8.4, RBC 3.95 L, Hgb 12.1 L, Hct 36.1 L, MCV 91.4, MCH 30.6, MCHC 33.5, Plt Count 225, MPV 10.0, Immature Gran % (Auto) 0.200, Neut % (Auto) 66.5, Lymph % (Auto) 23.7, [place] % (Auto) 8.2, Eos % (Auto) 0.7, Baso % (Auto) 0.7, Absolute Neuts (auto) 5.6, Nucleated RBC % 0 06/06/22 04:00: Sodium 141, Potassium 3.7, Chloride 110 H, Carbon Dioxide 26.0, Anion Gap 5, BUN 11, Creatinine 0.98, Est GFR (MDRD) Af Amer 104, Est GFR (MDRD) Non-Af 86, BUN/Creatinine Ratio 11.2, Glucose 101, Calcium 8.1 L, Total Bilirubin 0.30, Triglycerides 112, Cholesterol 151, LDL Cholesterol 102, VLDL Cholesterol 22, HDL Cholesterol 27 L Rhythm: EKG: ECHO: Stress Test: Cardiac Cath: PCI: CT Surgery: Holter monitor: EPS: PPM: CXR: Chest CT Scan: Physical Exam Narrative Comfortable. Sitting up in chair. Heart sounds 1 and 2 are normal. No murmurs noted. Chest clear to auscultation bilaterally. Abdomen soft. Right radial pulse 3+. Alert oriented x3. Assessment & Plan Assessment/Plan (1) Acute ST elevation myocardial infarction (STEMI): QUALIFIERS: Involved coronary artery: right coronary artery Qualified Code(s): I21.11 - ST elevation (STEMI) myocardial infarction involving right coronary artery PLAN: Status post percutaneous intervention to the proximal and distal right coronary artery. Stable. Asymptomatic. Continue medical management. Sinus bradycardia on telemetry. Hold beta-blockers for heart rate less than 50/min. PLAN: Plan If remained stable, then okay to discharge home tomorrow morning.
[2022-06-06] MEDS: Aspirin 81 MG TAB.CHEW PO (10:13)
[2022-06-06] MEDS: Metoprolol Tartrate 25 MG Tablet 12.5 MG PO (10:13)
[2022-06-06] MEDS: FLU VACC QS2022-23(6MOS UP)/PF 60 MCG/0.5 ML SYRINGE IM (10:26)
--- NOTE | 2022-06-06 14:05 | CASEMGMT ---
RN DEBORAH Face to Face with patient for initial transition planning/care coordination assessment. RN CM introduced self and role at [facility]. Patient sitting chair, alert and oriented. Patient willing to participate in assessment and is able to answer all questions appropriately. Care providers, pharmacy, and demographics verified. Patient wishes to discharge home, denies need for home health at this time. Patient states he has no further needs or concerns at this time. CM to follow for discharge planning needs that may arise. PCP: No PCP, list provided to patient Specialists: none Preferred Pharmacy: Tr[facility] L[facility]; [facility] at discharge. Insurance: None, to provided resources Prescription Benefit: none Living Will/HPOA: none LNOK: sister, niece Living Arrangements: Patient lives with niece in a single story home with no steps to enter. Patient states he is independent at home. Transportation: self, niece DME/HHC: Patient states he has cane and shower chair at home. No previous HHC Disposition Plan: Patient to discharge home with family support and follow-up plans in place. Zoraida ESCALANTE, RN, CM
[2022-06-06] MEDS: Clopidogrel Bisulfate 300 MG Tablet PO (15:27)
[2022-06-06] MEDS: Atorvastatin Calcium 80 MG Tablet PO (21:09)
[2022-06-07] VITALS (9 sets, daily range): BP systolic 95–112; BP diastolic 61–78; PULSE 50–66; RESP 14–18; TEMP 36.5–37; O2SAT 98–100
[2022-06-07 06:34] LABS: Absolute Lymphocyte Count 1.43 X10^3/uL (0.83-4.51); Absolute Neutrophil Count 5.2 X10^3/uL (2.0-7.7); Basophil# 0.06 X10^3/uL; Basophil% 0.8 % (0-1); Eosinophil# 0.13 X10^3/uL; Eosinophils% 1.8 % (0-5); Hematocrit 38.6 % (40-54); Hemoglobin 13.1 g/dL (13.0-16.5); Lymphocyte # 1.43 X10^3/ul (0.83-4.51); Lymphocyte % 19.3 % (19-41); Mean Corp Hgb Conc 33.9 g/dL (32-36); Mean Corpuscular Volume 91.3 fL (80-94); Mean Platelet Vol. 10.4 fl (6.2-12.0); Monocyte# 0.59 X10^3/uL; NRBC Flagged by Analyzer 0 % (0-5); Neutrophil # 5.18 X10^3/uL (2.7-7.7); Neutrophil % 69.7 % (47-70); Platelet Count 189 K/mm3 (150-450); RBC Distribution Width CV 13.7 % (11.6-14.6); RBC Distribution Width SD 45.9 fl (35.1-43.9); Red Blood Count 4.23 M/mm3 (4.6-6.2); White Blood Count 7.4 K/mm3 (4.4-11.0)
[2022-06-07 06:59] LABS: Anion Gap 5 (5-15); BUN 11 mg/dL (7-18); BUN/Creat Ratio 11.8 RATIO (10-20); Calcium,Total 8.5 mg/dL (8.5-10.1); Chloride 110 mmol/L (98-107); Creatinine, Serum 0.93 mg/dL (0.70-1.30); EST Glomerular Filtration Rate 91 mL/min (>60); Est Glom Filt Rate - Afr Amer 110 mL/min (>60); Estimated Creatinine Clearance 98.12 ml/min; Glucose 83 mg/dL (74-106); Potassium 3.9 mmol/L (3.5-5.1); Sodium Level 140 mmol/L (136-145)
--- NOTE | 2022-06-07 07:32 | CRPHASE1_ITS ---
Patient Communication PHII Cardiac Rehab Discussed with Patient:: Yes Guide to Cardiac Rehab Given to Patient:: Yes Cardiac Rehab Facility Choice List Given to Patient:: Yes Choice Program [facility] CR PHII:: Communication Given to CR, Refer to [facility] Supervisor Cigarette Making Department:: Manuel Barraza Phase II Cardiac Rehab:: Yes Sessions:: 36 sessions - 3 days/wk, 12 weeks Cardiac Rehabilitation Info Cardiac Rehabilitation Program Information: Cardiac Rehabilitation is important for patients like you who are recovering from a heart problem. Cardiac rehabilitation programs are recognized as integral to the continued care of the patient with coronary heart disease. The cardiac rehabilitation program is designed to optimize a patient's physical, psychological, and social functioning. Health patient care representative work in cardiac rehabilitation programs and assist you with getting the treatments you need to get stronger and healthier - like exercise, healthy eating habits, and medications. Cardiac rehabilitation has been show to help people with heart problems live longer and have better life enjoyment than people who do not go to cardiac rehabilitation. Please contact the Cardiac Rehabilitation Program at [facility] at in two weeks if you have not heard from them.
--- NOTE | 2022-06-07 07:33 | CRPH1.INSTRU ---
General Education CAD and cardiac anatomy and function:: Patient communicates acknowledgment Explanation of diagnoses and procedures:: Patient communicates acknowledgment Sign/Symptoms of MN:: Patient communicates acknowledgment Antiplatelet therapy: Patient communicates acknowledgment Proper use of NTG-SL: Patient communicates acknowledgment Emergency procedures and activation of EMS: Patient communicates acknowledgment Compliance of all prescribed medications: Patient communicates acknowledgment Dyslipidemia Patient Dyslipidemia Risk Factors Are:: Total Cholesterol, Triglycerides, HDL, LDL Recommendations Include:: Reviewed NCEP/ATP guidelines, Therapeutic Lifestyle Change dietary guidelines Dyslipidemia Response Code:: Patient communicates acknowledgment Hypertension Recommendations Include:: Maintain BP <130/85, DASH dietary guidelines Hypertension:: Patient communicates acknowledgment Heart Disease Recommendations Include:: Educated family members of their risk Heart Disease Response Code:: Patient communicates acknowledgment
--- NOTE | 2022-06-07 09:25 | PCM.PN.CARD ---
Subjective Subjective Doing good. Denies any complaints. Ambulating. Objective Data Vital Signs: Vital Signs Temp Pulse Resp BP Pulse Ox O2 Del Method O2 Flow Rate 97.7 F L 58 L 18 95/61 98 Room Air 2 06/07/22 04:03 06/07/22 07:00 06/07/22 04:03 06/07/22 04:03 06/07/22 07:50 06/07/22 07:50 06/06/22 21:07 Oxygen Flow Rate (L/min) 2 Oxygen Delivery Method Room Air Weight: 180 lb 5.41 oz Body Mass Index (BMI) 26.0 Intake & Output: Intake and Output for Last 24 Hours 06/05/22 06/06/22 06/07/22 23:59 23:59 23:59 Intake Total 2807.5 / 2807.5 100 / 100 Output Total 550 / 550 700 / 700 Balance -550 / -550 2107.5 / 2107.5 100 / 100 Lab / Micro Data Attestation: I reviewed the patient's lab results. Result Diagrams: 06/07/22 05:29 06/07/22 05:29 Labs: Laboratory Results - last 24 hr 06/07/22 05:29: WBC 7.4, RBC 4.23 L, Hgb 13.1, Hct 38.6 L, MCV 91.3, MCH 31.0, MCHC 33.9, RDW Std Deviation 45.9 H, RDW Coeff of Conrad 13.7, Plt Count 189, MPV 10.4, Immature Gran % (Auto) 0.400, Neut % (Auto) 69.7, Lymph % (Auto) 19.3, [place] % (Auto) 8.0, Eos % (Auto) 1.8, Baso % (Auto) 0.8, Absolute Neuts (auto) 5.2, Absolute Lymphs (auto) 1.43, Nucleated RBC % 0 06/07/22 05:29: Sodium 140, Potassium 3.9, Chloride 110 H, Carbon Dioxide 25.0, Anion Gap 5, BUN 11, Creatinine 0.93, Estim Creat Clear Calc 98.12, Est GFR (MDRD) Af Amer 110, Est GFR (MDRD) Non-Af 91, BUN/Creatinine Ratio 11.8, Glucose 83, Calcium 8.5 Cardiology Labs/Tests 06/07/22 05:29: WBC 7.4, RBC 4.23 L, Hgb 13.1, Hct 38.6 L, MCV 91.3, MCH 31.0, MCHC 33.9, Plt Count 189, MPV 10.4, Immature Gran % (Auto) 0.400, Neut % (Auto) 69.7, Lymph % (Auto) 19.3, [place] % (Auto) 8.0, Eos % (Auto) 1.8, Baso % (Auto) 0.8, Absolute Neuts (auto) 5.2, Nucleated RBC % 0 06/07/22 05:29: Sodium 140, Potassium 3.9, Chloride 110 H, Carbon Dioxide 25.0, Anion Gap 5, BUN 11, Creatinine 0.93, Est GFR (MDRD) Af Amer 110, Est GFR (MDRD) Non-Af 91, BUN/Creatinine Ratio 11.8, Glucose 83, Calcium 8.5 Rhythm: EKG: ECHO: Stress Test: Cardiac Cath: PCI: CT Surgery: Holter monitor: EPS: PPM: CXR: Chest CT Scan: Radiography Diagnostic Testing: Radiology Impression Echocardiogram 06/05/22 20:13 Interpretation Summary Mild concentric left ventricular hypertrophy. The left ventricular ejection fraction is 55 %. Basal to mid inferior and posterior hypokinesis. Mildly dilated right ventricle. Moderate global right ventricular systolic dysfunction. Ordering Physician: Ivonne Roman Referring Physician: Manuel Barraza Performed By: Mich Arizmendi RCS Physical Exam Narrative Comfortable. Sitting up in chair. Heart sounds 1 and 2 are normal. No murmurs noted. Chest clear to auscultation bilaterally. Abdomen soft. Alert oriented x3. Assessment & Plan Assessment/Plan (1) Acute ST elevation myocardial infarction (STEMI): QUALIFIERS: Involved coronary artery: right coronary artery Qualified Code(s): I21.11 - ST elevation (STEMI) myocardial infarction involving right coronary artery PLAN: Status post percutaneous intervention to the proximal and distal right coronary artery. Stable. Asymptomatic. Continue medical management. Sinus bradycardia on telemetry. DC beta-blockers. Check TSH. (2) Sinus bradycardia: PLAN: No beta-blockers. PLAN: Plan Okay to discharge home today. Follow-up as outpatient in 2 weeks.
[2022-06-07 10:07] LABS: Thyroid Stim Hormone (TSH) 2.53 uIU/mL (0.358-3.74)
--- NOTE | 2022-06-07 10:09 | CASEMGMT ---
Patient is listed as self pay. SW reviewed chart. SW met with patient. Introduced self and role at [facility]. Patient said he is currently living with his niece and her . Patient was traveling in his van and staying wherever for awhile. Since this incident patient is working on getting settled in one spot. SW provided patient with resources including: Medicaid application, prescription assistance programs, [employer], [facility] financial program, and [employer]. Grain Drier also notified SW that patient relayed to her that he is having a hard time coping with a relative's . SW mentioned this to patient. He confirmed he is having a hard time. He has not pursued counseling, but has been thinking about it. SW did provide patient with a list of counseling resources. Patient was very appreciative of all the resources SW provided. SW also mentioned that [facility] has a prescription assistance program that can assist patient's with their discharge medications one time a year. SW told patient we can let him know the cost of his meds and if he is not able to cover the cost [facility] may be able to assist. Jacqueline Kaufman SENIOR COMPLIANCE ANALYST GREG
[2022-06-07] MEDS: Clopidogrel Bisulfate 75 MG Tablet PO (11:56)
[2022-06-07] MEDS: Aspirin 81 MG TAB.CHEW PO (11:56)
--- NOTE | 2022-06-07 14:15 | DCINST_ITS ---
Discharge Instructions Diet Discharge Diet: 2000 mg Sodium Diet Activity Discharge Activity: Return to Normal Activity Follow Up Care Test Results: Test results from this visit will be discussed in further detail at your follow- up appointment, if applicable. Discharge Plan Admission Admit Date/Time: 06/05/22 18:37 Primary Reason for Your Visit: Heart attack Attending Provider: Verena Prabhakar Primary Care Provider: Care Physician,No Primary Consulting Providers: Ivonne Roman ; Manuel Barraza Instructions Patient Instructions: Heart Attack Dc Additional Instructions / Restrictions: *Please take this with you to your next doctors appointment* ?You will need to continue aspirin indefinitely ? You will need Plavix for at least 12 months ? You were started a statin and it is important that you take this on discharge as well ? 90-day supplies of aspirin, atorvastatin, clopidogrel sent to the [facility] retail pharmacy. ? You will be provided with a list of primary care providers, it is extremely important that you establish with a primary care provider for further coordination of care ? Follow-up with cardiology upon discharge Discharge Orders/Prescriptions Prescriptions: New atorvastatin 40 mg Tablet 40 mg PO QHS 90 Days Qty: 90 0RF clopidogrel 75 mg Tablet 75 mg PO DAILY 90 Days Qty: 90 0RF aspirin 81 mg Tablet,Chewable 81 mg PO 0800 90 Days Qty: 90 0RF Referrals / Follow Up: Manuel Barraza MD [Med Staff - Active Staff] - Within 2 Weeks (Please call for hospital follow-up appointment) Care Physician,No Primary [Primary Care Provider] - Disposition Disposition (needs filled in before D/C Order can be placed): Home, Self Care
--- NOTE | 2022-06-07 14:19 | DS.PCM_ITS ---
Providers Date of Admission: 06/05/22 Date of Discharge: 06/07/22 Primary Care Physician: Jaci Primary Care Phys Consultations 06/05/22 20:13 Consult: Cardiology Routine Consulting Provider: Manuel Barraza Reason for Consult: STEMI EMERGENT Consult: Yes MD Notified: Yes Date Notified: 06/05/22 Time Notified: 18:39 Method of Notification: ED Physician Initiated Reason For Visit: STEMI Diagnosis Discharge Diagnosis (1) Acute ST elevation myocardial infarction (STEMI): Status: Acute Code(s): I21.3 - ST elevation (STEMI) myocardial infarction of unspecified site Qualifiers: Involved coronary artery: right coronary artery Qualified Code(s): I21.11 - ST elevation (STEMI) myocardial infarction involving right coronary artery (2) Sinus bradycardia: Status: Acute Code(s): R00.1 - Bradycardia, unspecified Plan #1. Chest Pain w/ Acute Inferior STEMI #2. Chronic back pain #3. Former tobacco use Medications at Discharge Home Medications aspirin 81 mg chewable tablet 81 mg PO 0800 90 days #90 tabs 06/07/22 atorvastatin 40 mg tablet 40 mg PO QHS 90 days #90 tabs 06/07/22 clopidogrel 75 mg tablet 75 mg PO DAILY 90 days #90 tabs 06/07/22 Hospital Course Procedures 2-D Echocardiogram and Cardiac catheterization Summary of Care Provided Minutes Spent on Discharge: 32 Hospital Course: Tahir Wing is a 52-year-old male with a history of tobacco use who presented to [facility] with an ST elevation HI. He was taken emergently to the [facility] and it was found that he had a totally occluded proximal RCA. There was successful aspiration of the RCA followed by balloon angioplasty and SENG performed. He was started on aspirin and statin and of note due to not being insured Brilinta was substituted for Plavix. Additionally had some low blood pressure and low heart rate though was completely asymptomatic and reports that his heart rate stays low so he is not discharged on a beta-helga. He was monitored and ultimately discharged home in stable condition with prescription for new medications and strongly advised establish with a primary care physician and stressed need to follow-up with cardiology. Discharge instructions as below: -You will need to continue aspirin indefinitely ? You will need Plavix for at least 12 months ? You were started a statin and it is important that you take this on discharge as well ? 90-day supplies of aspirin, atorvastatin, clopidogrel sent to the [facility] retail pharmacy. ? You will be provided with a list of primary care providers, it is extremely important that you establish with a primary care provider for further coordination of care ? Follow-up with cardiology upon discharge Physical Exam Narrative General: Cooperative HEENT: Atraumatic, normocephalic Eyes: Anicteric, normal conjunctiva Neck: Supple, normal thyroid Respiratory: Clear to auscultation Cardiovascular: regular S1-S2 GI: Soft, normoactive bowel sounds : No renal angle tenderness Extremities: No edema, no clubbing Musculoskeletal: No muscle wasting Neuro: Awake, no lateralizing signs Skin: No rash Psych: Cooperative Weight / BMI Weight Weight: 81.8 kg Body Mass Index (BMI) 26.0 ABG / Lab / Microbiology Data Result Diagrams: 06/07/22 05:29 06/07/22 05:29 Laboratory: Laboratory Results - last 24 hr 06/07/22 05:29: WBC 7.4, RBC 4.23 L, Hgb 13.1, Hct 38.6 L, MCV 91.3, MCH 31.0, MCHC 33.9, RDW Std Deviation 45.9 H, RDW Coeff of Conrad 13.7, Plt Count 189, MPV 10.4, Immature Gran % (Auto) 0.400, Neut % (Auto) 69.7, Lymph % (Auto) 19.3, Aurora % (Auto) 8.0, Eos % (Auto) 1.8, Baso % (Auto) 0.8, Absolute Neuts (auto) 5.2, Absolute Lymphs (auto) 1.43, Nucleated RBC % 0 06/07/22 05:29: Sodium 140, Potassium 3.9, Chloride 110 H, Carbon Dioxide 25.0, Anion Gap 5, BUN 11, Creatinine 0.93, Estim Creat Clear Calc 98.12, Est GFR (MDRD) Af Amer 110, Est GFR (MDRD) Non-Af 91, BUN/Creatinine Ratio 11.8, Glucose 83, Calcium 8.5 06/07/22 05:29: TSH 2.53 D/C Instructions Discharge Diet: 2000 mg Sodium Diet Meaningful Use Info Meaningful Use Diagnoses (Choose all that apply): AMI AMI/Post PCI/Angioplasty Aspirin given w/in 24hrs of arrival?: Yes ASA at discharge?: Yes Antiplatelet Therapy at Discharge:: Yes Statins at discharge?: Yes Fan/ARB at discharge?: No Reason Fan/ARB not ordered:: Hypotension Beta Helga at discharge?: No Reason Beta Helga not ordered:: Hypotension Done w/ Acute HI measure.: Yes Documented LVEF (%): 55 Discharge Plan Admission Admit Date/Time: 06/05/22 18:37 Primary Reason for Your Visit: Heart attack Attending Provider: Verena Prabhakar Primary Care Provider: Care Physician,No Primary Consulting Providers: Ivonne Roman ; Manuel Barraza Instructions Patient Instructions: Heart Attack Dc Additional Instructions / Restrictions: *Please take this with you to your next doctors appointment* ?You will need to continue aspirin indefinitely ? You will need Plavix for at least 12 months ? You were started a statin and it is important that you take this on discharge as well ? 90-day supplies of aspirin, atorvastatin, clopidogrel sent to the [facility] retail pharmacy. ? You will be provided with a list of primary care providers, it is extremely important that you establish with a primary care provider for further coordination of care ? Follow-up with cardiology upon discharge Discharge Orders/Prescriptions Prescriptions: New atorvastatin 40 mg Tablet 40 mg PO QHS 90 Days Qty: 90 0RF clopidogrel 75 mg Tablet 75 mg PO DAILY 90 Days Qty: 90 0RF aspirin 81 mg Tablet,Chewable 81 mg PO 0800 90 Days Qty: 90 0RF Referrals / Follow Up: Manuel Barraza MD [Med Staff - Active Staff] - Within 2 Weeks (Please call for hospital follow-up appointment) Care Physician,No Primary [Primary Care Provider] - Disposition Disposition (needs filled in before D/C Order can be placed): Home, Self Care Charges/Coding Visit Charges Inpatient E&M: 04247 Disch Hosp
--- NOTE | 2022-06-07 14:40 | CASEMGMT ---
Addendum entered by Jacqueline Kaufman 06/07/22 14:46: JUDITH did let patient know that the prescription assistance program does not pay for over the counter medications. JUDITH told patient his Aspirin will be $3.59. Patient said that he can afford this. Jacqueline GARZA Original Note: Patient is up for discharge. JUDITH spoke with pharmacy and patient's prescriptions came to $44.06. SW spoke with patient and he is unable to afford this. JUDITH explained [facility] can help once a year. JUDITH reminded patient to complete the Medicaid application and to work on getting a Primary Care Dr. Patient thanked JUDITH. JUDITH completed prescription assistance form and sent to retail pharmacy. Jacqueline GARZA
--- NOTE | 2022-06-07 14:51 | PHA.DC.MC ---
Pharmacy Service has performed discharge medication reconciliation and counseling for this patient. 1. ASPIRIN 81MG PO BREAKFAST 2. ATORVASTATIN 40MG PO QHS 3. CLOPIDOGREL 75MG PO DAILY The patient's discharge medication list was reviewed for discrepancies and discrepancies were resolved. Home Medications aspirin 81 mg chewable tablet 81 mg PO 0800 90 days #90 tabs 06/07/22 atorvastatin 40 mg tablet 40 mg PO QHS 90 days #90 tabs 06/07/22 clopidogrel 75 mg tablet 75 mg PO DAILY 90 days #90 tabs 06/07/22 The patient was counseled on the following discharge medications and changes in medications for homegoing were reviewed. The Reason for Use, instructions for use, and potential side effects were reviewed for all new medications. The patient's questions regarding all of their medications were answered. The patient was able to verbally demonstrate an understanding of their discharge medications.
--- NOTE | 2022-06-07 17:17 | NURSING ---
Charting reviewed with Tiffani Marquez RN
== END 2022-06-07 17:04 | disposition home or self-care (01) | DRG 247 ==
LOC: ED 18:26 → ICU 18:52 → PCU 06-07 10:18
PROVIDERS: Family Medicine; Admitting Provider Internal Medicine Cardiovascular Disease; Emergency Provider Emergency Medicine; Visit Provider Internal Medicine
DX: I21.11 ST elevation (STEMI) myocardial infarction involving right coronary artery (principal); G89.29 Other chronic pain; M54.9 Dorsalgia, unspecified; R00.1 Bradycardia, unspecified; Z23 Encounter for immunization; Z87.891 Personal history of nicotine dependence
CPT/HCPCS: 36415; 80048; 80053; 80061; 80307; 83735; 84443; 84484; 85025; 85610; 85730; 92941; 92973; 93005; 93306; 93458; 97802; 99152; 99153; 99285; C1757; J7030; Q9957; Q9967; 90686; A4216; C1725; C1769; C1874; C1887; C1894; C9606